=== PATIENT | female | born 1985 | race Caucasian/White ===

== ENCOUNTER 2016-11-29 12:30 | Emergency (ER) | payer MEDICAID ==
[~2016-11-29] VITALS: Ht 165.1 cm; Wt 60.0 kg
[~2016-11-29 12:30] MED LIST: CEPH-460 PO
[2016-11-29 12:32] VITALS: BP 130/65; PULSE 97; RESP 20; TEMP 97.3; O2SAT 99
--- NOTE | 2016-11-29 13:02 | PD ---
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 She's had one partner in the past 6 months. She received a tap a shot several weeks ago and that was her first episode injection since she had a baby. He also has had some bleeding which she thought was unusual because she got her Depo shot. [facility] Past Medical History Medical History: Denies Significant Hx Diminished Hearing: No Immunizations Current: Yes ?: Not LMP: on depoprovera : 0 Para: 0 Miscarriage: 0 : 0 Past Surgical History Surgical History: No Previous Surgery Social History Alcohol Use: No Tobacco Use: Yes (4 cig a day ) Substance Use: No Allergies-Medications (Allergen,Severity, Reaction): Coded Allergies: No Known Allergies (Verified , 11/29/16) Reported Meds & Prescriptions Reported Meds & Active Scripts Active No Active Prescriptions or Reported Medications Review of Systems Except as stated in HPI: all other systems reviewed are Neg Physical Exam Narrative GENERAL:Well appearing, no acute distress SKIN: Focused skin assessment warm and dry. HEAD: Atraumatic. Normocephalic. EYES: Pupils equal and round. No injection or drainage. ENT: Moist mucous membranes NECK: Trachea midline. CARDIOVASCULAR: Regular rate and rhythm. No murmur appreciated. RESPIRATORY: Clear to auscultation. Breath sounds equal bilaterally. GASTROINTESTINAL: Abdomen soft, mildly tender to palpation in the lower abdomen with no rebound/guarding. WRAPPER SELECTOR: Copious yellow foul-smelling discharge in the vault with erythema of the cervix, no cervical motion tenderness or adnexal tenderness. MUSCULOSKELETAL: No obvious deformities. NEUROLOGICAL: Awake and alert. No obvious cranial nerve deficits. Moving all extremities PSYCHIATRIC: Appropriate mood and affect; insight and judgment normal. Data Data Last Documented VS Vital Signs Date Time Temp Pulse Resp B/P Pulse Ox O2 Delivery O2 Flow Rate FiO2 11/29/16 12:32 97.3 97 20 130/65 99 Room Air Orders Ed Urine Pregnancytest Poc (11/29/16 13:02) Wet Prep Profile (11/29/16 13:02) Gc And Chlamydia Pcr (11/29/16 13:02) Labs Laboratory Tests Test 11/29/16 13:11 Clue Cells (Wet Prep) NONE SEEN Vaginal Trichomonas (Wet Prep) PRESENT Vaginal Yeast (Wet Prep) NONE SEEN MDM Medical Decision Making Medical Screen Exam Complete: Yes Emergency Medical Condition: Yes Interpretation(s) Wet prep was positive for Trichomonas Differential Diagnosis Gonorrhea, chlamydia, Trichomonas, bacterial vaginosis Narrative Course This is a 31-year-old female who presents to the emergency department with vaginal discharge and spotting. She just had a baby 6 months ago and recently received a Depo-Provera shots I think this is the etiology of the spotting. Her pelvic exam suggests a sexually transmitted disease. Her wet prep was positive for Trichomonas. She'll be treated empirically for gonorrhea, Chlamydia and Trichomonas. She was advised to use protection until her partners treated. Diagnosis Primary Impression: Trichomonas infection Patient Instructions: General Instructions Additional Instructions: If you develop fever, chills, severe abdominal pain, persistent vomiting or inability to eat return to the emergency department. Your pelvic exam today did not include a Pap smear. It is important to followup with a strategy lead on a yearly basis to be tested for cervical cancer as we do not do that from the emergency department. If there is a concern that you have sexually transmitted disease, your partner should be tested. You should followup with your strategy lead or with the health department to get tested for other sexually transmitted diseases like HIV and syphilis, as we do not test for these in the emergency department Med/Other Pt SpecificInfo: No Change to Meds Scripts No Active Prescriptions or Reported Meds Disposition: 01 DISCHARGE HOME Condition: Sumaya Mejía MD Nov 29, 2016 13:02
[2016-11-29] MEDS ORDERED: ONDANSETRON ODT 4 MG TAB PO ONE (14:15)
[2016-11-29] MEDS ORDERED: metroNIDAZOLE 500 MG TAB PO ONE (14:15)
[2016-11-29] MEDS ORDERED: AZITHROMYCIN PWD FOR SUSP 1 GM PACKET PO ONE (14:15)
[2016-11-29] MEDS ORDERED: LIDOCAINE HCL 1% 50 ML VIAL IM ONE (14:15)
[2016-11-29] MEDS ORDERED: cefTRIAXone 250 MG VIAL IM ONE (14:15)
[2016-11-29 15:21] LABS: CHLAMYDIA PCR NOT DETECTED (NOT DETECT); NEISSERIA PCR NOT DETECTED (NOT DETECT)
[2016-11-29 15:33] LABS: BETA HCG QUANT 32 MIU/ML (0-5)
== END 2016-11-29 16:25 | disposition home or self-care (01) ==
LOC: NEPD 12:30
DX: A59.9 Trichomoniasis, unspecified (principal); F17.210 Nicotine dependence, cigarettes, uncomplicated
CPT/HCPCS: 84702; 84703; 87210; 87491; 87591; 96372; 99284; J0696